=== PATIENT | male | born 2005 | race Caucasian/White ===

== ENCOUNTER 2025-02-14 15:01 | Emergency (ER) | payer MEDICAID ==
[~2025-02-14] VITALS: Ht 177.8 cm; Wt 82.0 kg
[2025-02-14 15:10] VITALS: BP 125/53; PULSE 80; RESP 18; TEMP 98.2; O2SAT 98
[2025-02-14] MEDS: BACITRACIN 0.9 GM PACKET OINTMENT TP ONE (15:23)
[2025-02-14] MEDS: AMOX TR/POT CLAV 875 MG/125 MG TABLET PO ONE (15:23)
[2025-02-14] MEDS ORDERED: AMOX-457 PO (15:26)
[2025-02-14] MEDS ORDERED: BACI28.410 TP (15:26)
[2025-02-14] MEDS: PERTUSS(ACELL),DIPH,TET/PF 0.5 ML SYRINGE [ADULT] IM. ONE (15:29)
== END 2025-02-14 15:45 | disposition home or self-care (01) ==
LOC: EMS 15:02
DX: S61.250A Open bite of right index finger without damage to nail, initial encounter (principal); W54.0XXA Bitten by dog, initial encounter; Y93.89 Activity, other specified; Y92.89 Other specified places as the place of occurrence of the external cause; Y99.8 Other external cause status
CPT/HCPCS: 90471; 90715; 99283